=== PATIENT | male | born 1980 | race Caucasian/White ===

== ENCOUNTER → 2016-08-01 | Outpatient (CLI) | payer OTHER ==
[~2016-08-01] MED LIST: FIORICET 325 MG1 TAB PO; FLEXERIL5 MG PO; IBUPROFEN800 MG PO; NAPROSYN500 MG PO; NORCO 325 MG-101 TAB PO; NORCO 325 MG-51 TAB PO; PARAFON FORTE500 MG PO; PAXIL10 MG PO; PREDNICOT20 MG PO; ULTRAM50 MG PO
== END | disposition home or self-care (01) ==
LOC: MRI 11:00
DX: R51 Headache (principal)